=== PATIENT | female | born 1955 | race Caucasian/White ===

== ENCOUNTER 2017-05-23 00:23 | Observation (INO) ==
[2017-05-23] MEDS ORDERED: Naloxone 0.4 MG/ML INJ IVP PRN ×2 (05:43→08:08)
[2017-05-23] MEDS ORDERED: Acetaminophen 325 MG TABLET PO PRN (08:08)
[2017-05-23] MEDS ORDERED: Albuterol 2.5 MG/3 ML NEBULIZER IH PRN (08:10)
--- NOTE | 2017-05-23 08:14 | Internal Med History&Physical ---
Date of Encounter: 05/23/17 Time of Encounter: 08:00 Assessment and Plan (1) Chest pain Current visit: Yes Status: Acute R/O ACS EKG unremarkable Trop negative X2, cycle trops Obtain ECHO CTA shows multiple pulm nodules, non-diagnostic for PE Low suspicion VQ scan has been ordered, will follow Has allergy to ASA, add lipitor, check fasting lipid panel a.m No indication for cardiology eval at this time Qualifiers: Chest pain type: unspecified Qualified Code(s): R07.9 - Chest pain, unspecified (2) Morbid obesity with BMI of 40.0-44.9, adult Current visit: Yes Status: Chronic Lifestyle modification (3) Tobacco abuse Current visit: Yes Status: Chronic Tobacco cessation counseling provided. Nicotine patch provided. (4) Polycythemia Current visit: Yes Status: Acute Converted to chronic hypoxia from possible tobacco use. Give IV fluids, continue oxygen supplementation, wean oxygen as tolerated. Monitor CBC. (5) Anxiety Current visit: Yes Status: Chronic Continue all psych meds. (6) COPD exacerbation Current visit: Yes Status: Acute Continue duo nebs, alb prn steroids, and Levaquin. Patient was no wheezing at time of exam, Chest x-ray is unremarkable. Follow ECHO to assess for possible pulmonary hypertension. Internal Medicine - H&P: HPI Chief complaint: Chest pain Admitted From: Hospital to Hospital Transfer Plans for Post Hospital Care: Home History of present illness: Ms. Mercado is a 61 year old female with anxiety/bipolar and depression, tobacco abuse, morbid obesity presented to an outside facility with complaints of chest pain that started since 4 PM yesterday. The patient reports she was in her usual state of health when she developed chest pain said to have been pleuritic in nature and nonradiating with no associated diaphoresis, dizziness, shortness of breath. However, she also developed shortness of breath when she got to the hospital. She has no fever or chills. She has no cough. She has no leg swelling. She reports dyspnea on exertion on most days of the week. She has no nausea or vomiting, she has no change in her bowel or urinary habits. Work up at outside facility was unremarkable as chest x-ray was clear CT was done twice and was nondiagnostic for pulmonary embolism CBC shows polycythemia chemistry was normal and troponin was negative twice. She was transferred to [facility] for management of COPD exacerbation and to obtain a VQ scan to rule out pulmonary embolism. Patient was seen and evaluated at the bedside, she sees a chest pain has resolved, and she is no longer having shortness of breath. She denies sick contacts, she denies rhinorrhea or myalgias. She is not up-to-date with immunization. Past Med Surg Social Fam HX - Past Medical History Medical history: arthritis, fibromyalgia, other Psychiatric history: anxiety, bipolar, depression, PTSD - Past Surgical History Surgical History: appendectomy, , cholecystectomy, hysterectomy, other - Social History Smoking Status: Current every day smoker Packs per day: 2 Smokeless Tobacco Status: No Alcohol use: none Drug use: none Internal Medicine - H&P: Meds LORazepam [Ativan] 1 mg PO BID 03/09/15 [History] Quetiapine Fumarate [Seroquel] 400 mg PO HS 03/09/15 [History] Zolpidem [Ambien] 10 mg PO HS PRN 03/09/15 [History] Vilazodone HCl [Viibryd] 1.5 tab PO DAILY 04/17/16 [History] Docusate [Colace] 100 mg PO BID PRN 05/22/17 [History] Amitriptyline [Elavil] 25 mg PO BID 05/23/17 [History] HYDROcodone/Acet 10/325 mg [[place] 10-325 mg] 1 tab PO Q6HR PRN 05/23/17 [History ] cloNIDine HCl [Clonidine HCl] 0.2 mg PO BID 05/23/17 [History] 3 Allergy/AdvReac Type Severity Reaction Status Date / Time adhesive tape Allergy Severe See Verified 04/17/16 09:49 Comments aspirin Allergy See Verified 04/17/16 09:49 Comments All Systems PM: A 10-system review of systems was performed and is negative for pertinent findings except as documented above in the HPI. - Constitutional Constitutional: no chills, no fever(s), no night sweats - EENT Eyes: no change in vision, no discharge, no pain, no photophobia Ears: no ear discharge, no ear pain, no tinnitus Nose, mouth and throat: no dysphagia, no nasal discharge, no neck pain, no sore throat - Cardiovascular Cardiovascular ROS IM: chest pain, dyspnea on exertion, no diaphoresis, no dyspnea - Respiratory Respiratory: dyspnea on exertion - Gastrointestinal Gastrointestinal: no abdominal pain, no diarrhea, no hematemesis, no hematochezia, no melena, no nausea, no vomiting - Genitourinary Genitourinary: no change in urinary stream, no dysuria, no flank pain, no hematuria - Musculoskeletal Musculoskeletal ROS IM: no numbness, no tingling - Integumentary Integumentary IM: no rash, no unusual bruising - Neurological Neurological ROS: no confusion, no convulsions, no focal weakness, no numbness, no tingling, no tremor(s) - Hematologic/Lymphatic Hematologic/Lymphatic: no easy bruising - Constitutional Vitals: Temp Pulse Resp BP Pulse Ox 98.1 F 73 15 129/80 96 05/23/17 07:18 05/23/17 07:18 05/23/17 07:18 05/23/17 07:18 05/23/17 07:18 General appearance: Present: disheveled, A&O X 3, morbidly obese - Head Head exam: Present: atraumatic, normocephalic - Eye Eye exam: Present: PERRL, conjuntiva pink, sclera anicteric Pupils: Present: PERRL - Respiratory Additional comments: distant breath sounds, no wheezing, no rales or crackles - Cardiovascular Cardiovascular exam: Present: RRR, +S1, +S2. Absent: diastolic murmur, gallop, rubs, systolic murmur - GI/Abdominal GI/Abdominal exam: Present: normal bowel sounds, soft, no peritoneal signs. Absent: distended, tenderness - Extremities Exam Extremities exam: Present: pedal edema (trace bilateral pedal edema), warm, radial pulses palpable and symmetrical. Absent: calf tenderness, cyanotic - Neurological Exam Neurological exam: Present: alert, CN II-XII intact, oriented X3, no focal deficits. Absent: pronater drift, facial droop, speech deficit - Skin Skin exam: Present: dry, intact Internal Med - H&P Results - Labs Labs: Cardiac Enzymes 05/23/17 Range/Units 05:59 Troponin I < 0.03 (< 0.04) ng/mL
[2017-05-23] MEDS: cloNIDine HCl 0.1 MG TABLET PO SCH ×2 (08:53→20:53)
[2017-05-23] MEDS: levoFLOXacin 500 MG TABLET PO SCH (08:53)
[2017-05-23] MEDS: *HR* HYDROcodone/Acet 10/325 mg TABLET PO PRN ×3 (08:54→21:02)
[2017-05-23] MEDS: predniSONE 20 MG TABLET PO SCH (08:54)
[2017-05-23] MEDS: Nicotine 21 MG PATCH.TD24 TD SCH (08:54)
[2017-05-23] MEDS: VILAZODONE HCL PO SCH (09:03)
[2017-05-23] MEDS: *HR* LORazepam 1 MG TABLET PO SCH ×2 (09:04→20:53)
[2017-05-23] MEDS: Ipratropium/Albuterol Neb 3 ML IH SCH ×3 (10:28→21:58)
[2017-05-23] MEDS ORDERED: Perflutren Lipid Microsphere 1.3 ML in 0.9 % Sodium Chloride 8.7 ML IVP ONE (11:08)
[2017-05-23] MEDS: Pregabalin 75 MG CAPSULE PO SCH ×2 (15:11→20:52)
[2017-05-24] MEDS: Ipratropium/Albuterol Neb 3 ML IH SCH ×3 (04:57→15:25)
[2017-05-24] MEDS: *HR* HYDROcodone/Acet 10/325 mg TABLET PO PRN ×2 (05:00→11:47)
[2017-05-24] MEDS ORDERED: *HR* Enoxaparin 40 MG/0.4 ML SYRINGE SQ SCH (06:00)
[2017-05-24 06:32] LABS: Chol/HDL Ratio 5.4 (0-4.9)
[2017-05-24 06:34] LABS: Hematocrit 46.9 % (35.3-44.9); Mean Corpuscular Hemoglobin 28.1 pg (28.0-33.3); Platelet Count 205 K/mcL (140-400); Red Blood Count 5.33 M/mcL (3.82-4.97); Red Cell Distribution Width 13.2 % (11.5-14.5)
[2017-05-24] MEDS: Nicotine 21 MG PATCH.TD24 TD SCH (08:43)
[2017-05-24] MEDS: Pregabalin 75 MG CAPSULE PO SCH (08:44)
[2017-05-24] MEDS: levoFLOXacin 500 MG TABLET PO SCH (08:44)
[2017-05-24] MEDS: predniSONE 20 MG TABLET PO SCH (08:44)
[2017-05-24] MEDS: *HR* LORazepam 1 MG TABLET PO SCH (08:44)
[2017-05-24] MEDS: cloNIDine HCl 0.1 MG TABLET PO SCH (08:44)
[2017-05-24] MEDS: VILAZODONE HCL PO SCH (08:46)
[2017-05-24 14:46] VITALS: BP 128/78
--- NOTE | 2017-05-24 15:27 | Discharge Summary ---
Date of Encounter: 05/24/17 Time of Encounter: 15:22 - Discharge Diagnosis (1) Chest pain Priority: Primary Status: Ruled-out Qualifiers: Qualified Code(s): R07.9 - Chest pain, unspecified (2) Chronic narcotic dependence Priority: Secondary Status: Acute (3) Morbid obesity with BMI of 40.0-44.9, adult Priority: Secondary Status: Chronic (4) Tobacco abuse Priority: Secondary Status: Chronic (5) Anxiety Priority: Secondary Status: Chronic (6) Lung nodule < 6cm on CT Priority: Secondary Status: Acute - Discharge Medications Prescriptions: Nicotine Patch [Nicoderm] 21 mg TD DAILY #15 patch.td24 Home Medications: LORazepam [Ativan] 1 mg PO BID 03/09/15 [History] Quetiapine Fumarate [Seroquel] 400 mg PO HS 03/09/15 [History] Zolpidem [Ambien] 10 mg PO HS PRN 03/09/15 [History] Vilazodone HCl [Viibryd] 1.5 tab PO DAILY 04/17/16 [History] Docusate [Colace] 100 mg PO BID PRN 05/22/17 [History] Amitriptyline [Elavil] 25 mg PO BID 05/23/17 [History] HYDROcodone/Acet 10/325 mg [[place] 10-325 mg] 1 tab PO Q6HR PRN 05/23/17 [History ] cloNIDine HCl [Clonidine HCl] 0.2 mg PO BID 05/23/17 [History] Nicotine Patch [Nicoderm] 21 mg TD DAILY #15 patch.td24 05/24/17 [Rx] Pregabalin [Lyrica] 150 mg PO TID 05/24/17 [History] Allergies/Adverse Reactions: 3 Allergy/AdvReac Type Severity Reaction Status Date / Time adhesive tape Allergy Severe See Verified 04/17/16 09:49 Comments aspirin Allergy See Verified 04/17/16 09:49 Comments Procedures/tests Complete & Pending: Procedures Performed prior 72 hours Category Date Time Status VQ Scan [NM pul vent and perfuse] [NM] Stat Exams 05/23/17 05:45 Completed EV echocardiogram Routine Y 05/23/17 08:09 Completed Date of admission: 05/23/17 03:07 Primary care physician: Arthur Elias CNP Consults: 05/23/17 08:10 Consult to Nurse Navigator [CONS] Routine Comment: - Patient Status Disposition: Home, Self-Care Condition: Good Overall status at discharge: patient is back to baseline - Discharge Instructions Instructions: COPD Exacerbation, Die Keeper (GEN) Follow Up With: Arthur Elias CNP [Primary Care Provider] - 05/31/17 3:00 pm Additional Instructions: Please talk to your PCP to schedule for out pt cardiac stress test Quit smoking If you smoke, STOP: Smoking or tobacco use significantly increases your risk of heart and lung disease. Your chance of disease greatly increases if you continue to smoke. For more information, call the [place] tobacco quit line for smoking cessation 3- QUIT-NOW ( ) - Diet and Activity Activity: increase activity as tolerated Diet: low salt diet Hospital course: Ms. Mercado is a 61 year old female with anxiety/bipolar and depression, tobacco abuse, morbid obesity presented to an outside facility with complaints of chest pain that started after she was carrying fire wood. Work up at outside facility was unremarkable as chest x-ray was clear CT was done twice and was nondiagnostic for pulmonary embolism CBC shows polycythemia chemistry was normal and troponin was negative twice. She was transferred to [facility] Pt was admitted in the hospital here and placed her on Tele. Her EKG showed NSR , No acute ischemic changes noticed. However with her significant FH I asked the pt to f.u with PCP to schedule for an out pt stress test. Pt had V/Q scan which came back as low probablity. Reviewed her CTA results, noticed multiple pulmonary nodules b/l upper lobes 5mm in size. So counseled the pt to quit smoking and ofered nicotine patches. Pt denied any CP or SOB. Pt does not want any broncho dilator inhaler to take home. - Time Spent with Patient Total time spent providing and/or coordinating discharge services: - Constitutional Vitals: Temp Pulse Resp BP Pulse Ox 98.4 F 87 18 128/78 94 05/24/17 14:42 05/24/17 14:42 05/24/17 14:42 05/24/17 14:42 05/24/17 14:42 General appearance: Present: A&O X 3, morbidly obese, pleasant, answers questions appropriately - Head Head exam: Present: atraumatic, normal inspection - Neck Neck exam general surgery: Present: supple - Respiratory Respiratory exam: Absent: decreased breath sounds, rales, respiratory distress, rhonchi, wheezes - Cardiovascular Cardiovascular exam: Present: RRR, +S1, +S2. Absent: tachycardia - GI/Abdominal GI/Abdominal exam: Present: normal bowel sounds, soft. Absent: rebound, rigid, tenderness - Extremities Exam Extremities exam: Absent: calf tenderness, pedal edema, tenderness - Back Exam Back exam: Absent: CVA tenderness (L), CVA tenderness (R) - Psychiatric Psychiatric exam: Present: normal affect, normal mood
== END 2017-05-24 15:33 | disposition home or self-care (01) ==
LOC: 3ANU
PROVIDERS: ADMIT Internal Medicine; ATTEND Internal Medicine